=== PATIENT | female | born 1960 | race Caucasian/White ===

== ENCOUNTER 2019-11-19 13:41 | Inpatient (IN) | payer MEDICAID ==
[~2019-11-19] VITALS: Ht 180.3 cm; Wt 107.5 kg
[2019-11-19] MEDS ORDERED: LURA40TA2 PO (16:51)
[2019-11-19] MEDS ORDERED: TRAZ-252 PO (16:51)
[2019-11-19] MEDS ORDERED: ZOLPIDEM TARTRATE 10 MG TABLET PO PRN (22:15)
[2019-11-19] MEDS ORDERED: HALOPERIDOL 5 MG TABLET PO PRN (22:15)
[2019-11-19 22:17] VITALS: BP 127/66
[2019-11-19] MEDS ORDERED: PNEUMOCOCCAL VACCINE POLYVALENT 0.5 ML VIAL [PPSV23] IM ONE (23:45)
[2019-11-20 00:52] VITALS: BP 128/56
[2019-11-20] MEDS ORDERED: INSULIN LISPRO 100 UNITS/ML SQ PRN (06:15)
[2019-11-20] MEDS ORDERED: GLUCAGON,HUMAN RECOMBINANT 1 MG VIAL IM PRN (06:30)
[2019-11-20 06:42] LABS: GLUCOMETER DEV NAME(LOC) BV2S.; GLUCOSE,POINT OF CARE 241 MG/DL (70-110)
[2019-11-20] MEDS: INSULIN LISPRO 100 UNITS/ML SQ PRN ×4 (06:43→20:14)
[2019-11-20] MEDS: MetFORMIN HCL 500 MG TABLET PO SCH ×2 (06:52→16:34)
[2019-11-20] MEDS ORDERED: MetFORMIN HCL 500 MG TABLET PO SCH (07:00)
[2019-11-20 08:42] LABS: BASOPHILS % (AUTO) 0.5 % (0.0-2.0); HEMATOCRIT 43.8 % (36-46); HEMOGLOBIN 14.4 g/dL (12.0-16.0); LYMPHOCYTES # (AUTO) 1.8 K/uL (1.0-4.8); LYMPHOCYTES % (AUTO) 20.6 % (22.0-44.0); MEAN CORPUSCULAR HEMOGLOBIN 30.5 pg (26.0-34.0); MEAN CORPUSCULAR HGB CONC 32.8 G/dL (31.0-37.0); MEAN CORPUSCULAR VOLUME 93 fL (80-100); MONOCYTES # (AUTO) 0.6 K/uL (0.1-1.0); MONOCYTES % (AUTO) 7.2 % (2.0-9.0); NEUTROPHILS % (AUTO) 67.7 % (40.0-70.0); PLATELET COUNT (AUTO) 232 K/uL (150-450); RED BLOOD CELL COUNT(AUTO) 4.71 MIL/uL (4.00-5.20); RED CELL DISTRIBUTION WIDTH 14.2 % (11.5-14.5)
[2019-11-20 09:20] LABS: ALANINE AMINOTRANSFERASE 55 U/L (12-78); ALBUMIN 3.6 g/dL (3.4-5.0); ALKALINE PHOSPHATASE 110 U/L (46-116); ANION GAP 8 mmol/L (8-16); ASPARTATE AMINOTRANSFERASE 60 U/L (15-37); BILIRUBIN,TOTAL 0.9 mg/dL (0.1-1.0); CALCIUM, TOTAL 9.3 mg/dL (8.8-10.5); CARBON DIOXIDE 29 mmol/L (22-29); CHLORIDE 100 mmol/L (98-107); CHOL/HDL RATIO 5.2 (3.9-5.7); CHOLESTEROL 208 mg/dL (131-200); CREATININE 0.71 mg/dL (0.60-1.30); FREE T4 (FREE THYROXINE) 1.01 ng/dL (0.76-1.46); GLOMERULAR FILTR. RATE CALC > 60 mL/min (>60); GLUCOSE,RANDOM 249 mg/dL (70-110); HDL CHOLESTEROL 40 mg/dL (40-60); LDL CHOL (CALC.) 143 mg/dL (0-130); POTASSIUM 4.2 mmol/L (3.5-5.1); SODIUM SERUM 137 mmol/L (136-145); THYROID STIMULATING HORMONE 1.54 uIU/mL (0.36-3.74); TOTAL PROTEIN, SERUM 7.3 g/dL (6.4-8.2); TRIGLYCERIDES 127 mg/dL (15-150); UREA NITROGEN, BLOOD 10 mg/dL (7-18)
[2019-11-20 09:55] VITALS: BP 119/62
[2019-11-20] MEDS ORDERED: ACETAMINOPHEN 325 MG TABLET PO PRN (11:30)
[2019-11-20] MEDS ORDERED: DOCUSATE SODIUM 100 MG CAPSULE PO PRN (11:30)
[2019-11-20] MEDS ORDERED: MAGNESIUM HYDROXIDE SUSPENSION 30 ML UDCUP PO PRN (11:30)
[2019-11-20] MEDS ORDERED: CloNIDine HCL 0.1 MG TABLET PO PRN (11:30)
[2019-11-20] MEDS ORDERED: GuaiFENesin/D-METHORPHAN [SUGAR-FREE] 200-20MG/10 ML SYRUP UDCUP PO PRN (11:30)
[2019-11-20] MEDS ORDERED: MAG HYDROX/AL HYDROX/SIMETH ES 30 ML SUSPENSION UDCUP PO PRN (11:30)
[2019-11-20] MEDS ORDERED: ONDANSETRON HCL 4 MG TABLET PO PRN (11:30)
[2019-11-20] MEDS ORDERED: LOPERAMIDE HCL 2 MG CAPSULE PO PRN (11:30)
[2019-11-20] MEDS ORDERED: NICOTINE 14 MG/24 HOUR PATCH TD PRN (11:30)
[2019-11-20] MEDS ORDERED: PETROLATUM,WHITE 28 GM JELLY TP PRN (11:30)
[2019-11-20 12:23] LABS: GLUCOMETER DEV NAME(LOC) BV2S.; GLUCOSE,POINT OF CARE 195 MG/DL (70-110)
[2019-11-20 12:29] LABS: HEMOGLOBIN A1C 9.2 % (3.8-5.6)
[2019-11-20] MEDS: VENLAFAXINE HCL 150 MG ER CAPSULE PO SCH (12:41)
[2019-11-20] MEDS ORDERED: ARIPiprazole LAUROXIL ER SUSPENSION 662 MG/2.4 ML SYRINGE IM SCH (13:00)
[2019-11-20] MEDS: LORazepam 2 MG TABLET PO PRN ×2 (14:39→21:19)
[2019-11-20 16:53] LABS: GLUCOMETER DEV NAME(LOC) BV2S.; GLUCOSE,POINT OF CARE 253 MG/DL (70-110)
[2019-11-20 17:10] VITALS: BP 124/84
[2019-11-20 20:26] LABS: GLUCOMETER DEV NAME(LOC) BV2S.; GLUCOSE,POINT OF CARE 265 MG/DL (70-110)
[2019-11-20] MEDS: TraZODone HCL 50 MG TABLET PO SCH (21:19)
[2019-11-20] MEDS: ALBUTEROL SULFATE HFA 90 MCG/PUFF 8 GM INHALER IH PRN (21:21)
[2019-11-21 01:32] VITALS: BP 137/79
[2019-11-21] MEDS: INSULIN LISPRO 100 UNITS/ML SQ PRN ×4 (06:36→20:31)
[2019-11-21 06:38] LABS: GLUCOMETER DEV NAME(LOC) BV2S.; GLUCOSE,POINT OF CARE 199 MG/DL (70-110)
[2019-11-21] MEDS: MetFORMIN HCL 500 MG TABLET PO SCH ×2 (06:52→16:41)
[2019-11-21] MEDS: VENLAFAXINE HCL 150 MG ER CAPSULE PO SCH (08:40)
[2019-11-21 09:27] VITALS: BP 120/71
[2019-11-21 11:13] LABS: GLUCOMETER DEV NAME(LOC) BV2S.; GLUCOSE,POINT OF CARE 232 MG/DL (70-110)
[2019-11-21] MEDS: LORazepam 2 MG TABLET PO PRN (12:59)
[2019-11-21] MEDS: ALBUTEROL SULFATE HFA 90 MCG/PUFF 8 GM INHALER IH PRN (13:01)
[2019-11-21 16:00] VITALS: BP 140/62
[2019-11-21 17:04] LABS: GLUCOMETER DEV NAME(LOC) BV2S.; GLUCOSE,POINT OF CARE 225 MG/DL (70-110)
[2019-11-21] MEDS: TraZODone HCL 50 MG TABLET PO SCH (20:23)
[2019-11-21 20:55] LABS: GLUCOMETER DEV NAME(LOC) BV2S.; GLUCOSE,POINT OF CARE 207 MG/DL (70-110)
[2019-11-22] MEDS: IBUPROFEN 400 MG TABLET PO PRN (00:03)
[2019-11-22 00:18] VITALS: BP 140/98
[2019-11-22] MEDS: MetFORMIN HCL 500 MG TABLET PO SCH ×2 (06:13→16:02)
[2019-11-22] MEDS: INSULIN LISPRO 100 UNITS/ML SQ PRN ×4 (06:15→19:55)
[2019-11-22 06:20] LABS: GLUCOMETER DEV NAME(LOC) BV2S.; GLUCOSE,POINT OF CARE 206 MG/DL (70-110)
[2019-11-22] MEDS: LORazepam 2 MG TABLET PO PRN ×2 (06:44→13:47)
[2019-11-22] MEDS: VENLAFAXINE HCL 150 MG ER CAPSULE PO SCH (08:25)
[2019-11-22 10:44] VITALS: BP 132/90
[2019-11-22 11:47] LABS: GLUCOMETER DEV NAME(LOC) BV2S.; GLUCOSE,POINT OF CARE 198 MG/DL (70-110)
[2019-11-22 16:20] LABS: GLUCOMETER DEV NAME(LOC) BV2S.; GLUCOSE,POINT OF CARE 168 MG/DL (70-110)
[2019-11-22] MEDS: ALBUTEROL SULFATE HFA 90 MCG/PUFF 8 GM INHALER IH PRN ×2 (16:35→22:19)
[2019-11-22 19:07] VITALS: BP 138/87
[2019-11-22] MEDS: TraZODone HCL 50 MG TABLET PO SCH (19:43)
[2019-11-22 20:05] LABS: GLUCOMETER DEV NAME(LOC) BV2S.; GLUCOSE,POINT OF CARE 185 MG/DL (70-110)
[2019-11-23 03:56] VITALS: BP 138/66
[2019-11-23 06:18] LABS: GLUCOMETER DEV NAME(LOC) BV2S.; GLUCOSE,POINT OF CARE 190 MG/DL (70-110)
[2019-11-23] MEDS: MetFORMIN HCL 500 MG TABLET PO SCH ×2 (06:31→16:09)
[2019-11-23] MEDS: INSULIN LISPRO 100 UNITS/ML SQ PRN ×4 (06:32→20:50)
[2019-11-23] MEDS: VENLAFAXINE HCL 150 MG ER CAPSULE PO SCH (08:01)
[2019-11-23 08:40] VITALS: BP 137/76
[2019-11-23 11:21] LABS: GLUCOMETER DEV NAME(LOC) BV2S.; GLUCOSE,POINT OF CARE 250 MG/DL (70-110)
[2019-11-23] MEDS: LORazepam 2 MG TABLET PO PRN ×2 (16:09→20:44)
[2019-11-23 16:22] LABS: GLUCOMETER DEV NAME(LOC) BV2S.; GLUCOSE,POINT OF CARE 212 MG/DL (70-110)
[2019-11-23 16:40] VITALS: BP 111/75
[2019-11-23 20:42] LABS: GLUCOMETER DEV NAME(LOC) BV2S.; GLUCOSE,POINT OF CARE 192 MG/DL (70-110)
[2019-11-23] MEDS: TraZODone HCL 50 MG TABLET PO SCH (20:44)
[2019-11-24 04:21] VITALS: BP 122/80
[2019-11-24] MEDS: INSULIN LISPRO 100 UNITS/ML SQ PRN ×4 (06:45→20:58)
[2019-11-24] MEDS: MetFORMIN HCL 500 MG TABLET PO SCH ×2 (06:45→17:11)
[2019-11-24 06:56] LABS: GLUCOMETER DEV NAME(LOC) BV2S.; GLUCOSE,POINT OF CARE 183 MG/DL (70-110)
[2019-11-24] MEDS: LORazepam 2 MG TABLET PO PRN ×2 (07:08→17:11)
[2019-11-24 08:35] VITALS: BP 130/74
[2019-11-24] MEDS: VENLAFAXINE HCL 150 MG ER CAPSULE PO SCH (08:35)
[2019-11-24] MEDS: IBUPROFEN 400 MG TABLET PO PRN (08:35)
[2019-11-24 08:52] VITALS: BP 157/65
[2019-11-24 11:23] LABS: GLUCOMETER DEV NAME(LOC) BV2S.; GLUCOSE,POINT OF CARE 184 MG/DL (70-110)
[2019-11-24 16:09] VITALS: BP 131/67
[2019-11-24 19:48] LABS: GLUCOMETER DEV NAME(LOC) BV2S.; GLUCOSE,POINT OF CARE 204 MG/DL (70-110)
[2019-11-24 20:44] LABS: GLUCOMETER DEV NAME(LOC) BV2S.; GLUCOSE,POINT OF CARE 170 MG/DL (70-110)
[2019-11-24] MEDS: TraZODone HCL 50 MG TABLET PO SCH (20:55)
[2019-11-25 00:14] VITALS: BP 110/70
[2019-11-25] MEDS: LORazepam 2 MG TABLET PO PRN ×2 (04:22→09:31)
[2019-11-25 06:24] LABS: GLUCOMETER DEV NAME(LOC) BV2S.; GLUCOSE,POINT OF CARE 165 MG/DL (70-110)
[2019-11-25] MEDS: INSULIN LISPRO 100 UNITS/ML SQ PRN ×4 (06:38→20:37)
[2019-11-25] MEDS: MetFORMIN HCL 500 MG TABLET PO SCH ×2 (06:42→16:51)
[2019-11-25 08:11] VITALS: BP 118/67
[2019-11-25] MEDS: VENLAFAXINE HCL 150 MG ER CAPSULE PO SCH (08:29)
[2019-11-25 11:49] LABS: GLUCOMETER DEV NAME(LOC) BV2S.; GLUCOSE,POINT OF CARE 221 MG/DL (70-110)
[2019-11-25 16:27] VITALS: BP 132/68
[2019-11-25 17:55] LABS: GLUCOMETER DEV NAME(LOC) BV2S.; GLUCOSE,POINT OF CARE 228 MG/DL (70-110)
[2019-11-25] MEDS: TraZODone HCL 50 MG TABLET PO SCH (20:31)
[2019-11-25 20:58] LABS: GLUCOMETER DEV NAME(LOC) BV2S.; GLUCOSE,POINT OF CARE 216 MG/DL (70-110)
[2019-11-26 00:39] VITALS: BP 109/69
[2019-11-26 06:22] LABS: GLUCOMETER DEV NAME(LOC) BV2S.; GLUCOSE,POINT OF CARE 185 MG/DL (70-110)
[2019-11-26] MEDS: MetFORMIN HCL 500 MG TABLET PO SCH ×2 (07:02→16:43)
[2019-11-26] MEDS: INSULIN LISPRO 100 UNITS/ML SQ PRN ×4 (07:04→20:38)
[2019-11-26 08:10] VITALS: BP 128/73
[2019-11-26] MEDS: VENLAFAXINE HCL 150 MG ER CAPSULE PO SCH (08:24)
[2019-11-26] MEDS: LORazepam 2 MG TABLET PO PRN (11:54)
[2019-11-26 16:19] VITALS: BP 122/70
[2019-11-26 16:48] LABS: GLUCOMETER DEV NAME(LOC) BV2S.; GLUCOSE,POINT OF CARE 205 MG/DL (70-110)
[2019-11-26 21:14] LABS: GLUCOMETER DEV NAME(LOC) BV2S.; GLUCOSE,POINT OF CARE 229 MG/DL (70-110)
[2019-11-26] MEDS: TraZODone HCL 50 MG TABLET PO SCH (21:23)
[2019-11-27 06:38] LABS: GLUCOMETER DEV NAME(LOC) BV2S.; GLUCOSE,POINT OF CARE 194 MG/DL (70-110)
[2019-11-27] MEDS: MetFORMIN HCL 500 MG TABLET PO SCH ×2 (06:51→16:39)
[2019-11-27] MEDS: INSULIN LISPRO 100 UNITS/ML SQ PRN ×4 (06:52→20:35)
[2019-11-27] MEDS: LORazepam 2 MG TABLET PO PRN ×2 (06:55→14:41)
[2019-11-27] MEDS: VENLAFAXINE HCL 150 MG ER CAPSULE PO SCH (08:32)
[2019-11-27 08:43] VITALS: BP 123/79
[2019-11-27 11:11] LABS: GLUCOMETER DEV NAME(LOC) BV2S.; GLUCOSE,POINT OF CARE 174 MG/DL (70-110)
[2019-11-27 16:56] VITALS: BP 132/89
[2019-11-27 16:59] LABS: GLUCOMETER DEV NAME(LOC) BV2S.; GLUCOSE,POINT OF CARE 152 MG/DL (70-110)
[2019-11-27] MEDS: TraZODone HCL 100 MG TABLET PO SCH (20:27)
[2019-11-27 21:09] LABS: GLUCOMETER DEV NAME(LOC) BV2S.; GLUCOSE,POINT OF CARE 221 MG/DL (70-110)
[2019-11-28 00:21] VITALS: BP 137/80
[2019-11-28 06:09] LABS: GLUCOMETER DEV NAME(LOC) BV2S.; GLUCOSE,POINT OF CARE 199 MG/DL (70-110)
[2019-11-28] MEDS: MetFORMIN HCL 500 MG TABLET PO SCH ×2 (06:46→16:53)
[2019-11-28] MEDS: INSULIN LISPRO 100 UNITS/ML SQ PRN ×4 (06:47→20:41)
[2019-11-28 08:26] VITALS: BP 143/92
[2019-11-28] MEDS: VENLAFAXINE HCL 150 MG ER CAPSULE PO SCH (08:28)
[2019-11-28 11:50] LABS: GLUCOMETER DEV NAME(LOC) BV2S.; GLUCOSE,POINT OF CARE 282 MG/DL (70-110)
[2019-11-28] MEDS: LORazepam 2 MG TABLET PO PRN ×2 (14:40→21:58)
[2019-11-28 16:05] VITALS: BP 110/72
[2019-11-28 17:18] LABS: GLUCOMETER DEV NAME(LOC) BV2S.; GLUCOSE,POINT OF CARE 265 MG/DL (70-110)
[2019-11-28] MEDS: TraZODone HCL 100 MG TABLET PO SCH (20:32)
[2019-11-28 21:03] LABS: GLUCOMETER DEV NAME(LOC) BV2S.; GLUCOSE,POINT OF CARE 212 MG/DL (70-110)
[2019-11-29 05:18] VITALS: BP 133/82
[2019-11-29] MEDS: INSULIN LISPRO 100 UNITS/ML SQ PRN ×4 (06:14→20:36)
[2019-11-29 06:21] LABS: GLUCOMETER DEV NAME(LOC) BV3N.; GLUCOSE,POINT OF CARE 211 MG/DL (70-110)
[2019-11-29] MEDS: MetFORMIN HCL 500 MG TABLET PO SCH ×2 (06:32→16:31)
[2019-11-29] MEDS: VENLAFAXINE HCL 150 MG ER CAPSULE PO SCH (08:33)
[2019-11-29 08:38] VITALS: BP 134/74
[2019-11-29] MEDS: LORazepam 2 MG TABLET PO PRN ×2 (10:02→20:34)
[2019-11-29 11:09] LABS: GLUCOMETER DEV NAME(LOC) BV3N.; GLUCOSE,POINT OF CARE 305 MG/DL (70-110)
[2019-11-29 16:48] LABS: GLUCOMETER DEV NAME(LOC) BV3N.; GLUCOSE,POINT OF CARE 195 MG/DL (70-110)
[2019-11-29 17:33] VITALS: BP 124/74
[2019-11-29] MEDS: TraZODone HCL 100 MG TABLET PO SCH (20:06)
[2019-11-29 20:41] LABS: GLUCOMETER DEV NAME(LOC) BV3N.; GLUCOSE,POINT OF CARE 229 MG/DL (70-110)
[2019-11-30 02:00] VITALS: BP 136/74
[2019-11-30] MEDS: MetFORMIN HCL 500 MG TABLET PO SCH ×2 (06:18→16:27)
[2019-11-30] MEDS: INSULIN LISPRO 100 UNITS/ML SQ PRN ×4 (06:23→21:20)
[2019-11-30 08:20] VITALS: BP 100/54
[2019-11-30] MEDS: VENLAFAXINE HCL 150 MG ER CAPSULE PO SCH (08:31)
[2019-11-30 08:35] VITALS: BP 112/77
[2019-11-30] MEDS: LORazepam 2 MG TABLET PO PRN ×2 (08:38→16:37)
[2019-11-30 12:01] LABS: GLUCOMETER DEV NAME(LOC) BV3N.; GLUCOSE,POINT OF CARE 202 MG/DL (70-110)
[2019-11-30 16:47] LABS: GLUCOMETER DEV NAME(LOC) BV3N.; GLUCOSE,POINT OF CARE 239 MG/DL (70-110)
[2019-11-30 17:17] VITALS: BP 136/89
[2019-11-30] MEDS: TraZODone HCL 100 MG TABLET PO SCH (20:38)
[2019-11-30 20:56] LABS: GLUCOMETER DEV NAME(LOC) BV3N.; GLUCOSE,POINT OF CARE 224 MG/DL (70-110)
[2019-12-01 04:33] VITALS: BP 124/76
[2019-12-01] MEDS: MetFORMIN HCL 500 MG TABLET PO SCH (06:06)
[2019-12-01 06:09] LABS: GLUCOMETER DEV NAME(LOC) BV3N.; GLUCOSE,POINT OF CARE 189 MG/DL (70-110)
[2019-12-01] MEDS: INSULIN LISPRO 100 UNITS/ML SQ PRN ×2 (06:22→12:06)
[2019-12-01] MEDS: VENLAFAXINE HCL 150 MG ER CAPSULE PO SCH (08:28)
[2019-12-01] MEDS: LORazepam 2 MG TABLET PO PRN (08:28)
[2019-12-01 08:31] VITALS: BP 122/75
[2019-12-01 11:21] LABS: GLUCOMETER DEV NAME(LOC) BV3N.; GLUCOSE,POINT OF CARE 233 MG/DL (70-110)
[2019-12-01] MEDS ORDERED: ARIP662S IM (14:02)
[2019-12-01] MEDS ORDERED: VENL-68 PO (14:02)
[2019-12-01] MEDS ORDERED: METF-960 PO (14:03)
[2019-12-01] MEDS ORDERED: TRAZ-257 PO (14:06)
== END 2019-12-01 14:00 | disposition home or self-care (01) | DRG 750 ==
LOC: B2S 22:06 → B3A 11-28 21:32
PROVIDERS: ADMIT Psychiatry & Neurology Child & Adolescent Psychiatry; ATTEND Psychiatry & Neurology Child & Adolescent Psychiatry
PROC: 3E0234Z Introduction of Serum, Toxoid and Vaccine into Muscle, Percutaneous Approach (ICD-10-PCS; principal; 2019-11-19)
DX: F25.1 Schizoaffective disorder, depressive type (principal); R45.851 Suicidal ideations; E11.9 Type 2 diabetes mellitus without complications; Z91.5 Personal history of self-harm; I10 Essential (primary) hypertension; E78.5 Hyperlipidemia, unspecified; J45.909 Unspecified asthma, uncomplicated; Z59.0 Homelessness; F41.9 Anxiety disorder, unspecified; Z91.19 Patient's noncompliance with other medical treatment and regimen; F41.0 Panic disorder [episodic paroxysmal anxiety]; Z72.89 Other problems related to lifestyle; Z23 Encounter for immunization
CPT/HCPCS: 83036; 84439; 84443; 87081; 90732; J3535